=== PATIENT | male | born 2005 | race African-American/Black ===

== ENCOUNTER 2024-08-27 13:34 | Emergency (ER) | payer MEDICAID, OTHER ==
[~2024-08-27] VITALS: Ht 185.4 cm; Wt 59.0 kg
[2024-08-27 14:27] VITALS: BP 112/63; TEMP 97.8
[2024-08-27 15:33] VITALS: O2SAT 100
== END 2024-08-27 15:34 | disposition home or self-care (01) ==
LOC: ER 14:28
DX: T82.838A Hemorrhage due to vascular prosthetic devices, implants and grafts, initial encounter (principal); R20.2 Paresthesia of skin; R11.0 Nausea; X58.XXXA Exposure to other specified factors, initial encounter; Y93.89 Activity, other specified; Y92.89 Other specified places as the place of occurrence of the external cause; Y99.8 Other external cause status